=== PATIENT | female | born 1980 | race Caucasian/White ===

== ENCOUNTER 2016-12-04 10:45 | Emergency (ER) | payer SELFPAY ==
[~2016-12-04] VITALS: Ht 170.2 cm; Wt 95.8 kg
[~2016-12-04 10:45] MED LIST: ALBUTEROL SULF8.5 GM IH; AMOXICILLIN500 MG PO; CIPRO500 MG PO; DEBROX15 ML BOTH EARS; DILAUDID2 MG PO; FLAGYL500 MG PO; GLUCOPHAGE500 MG PO; IBUPROFEN200 M1 PO; LEVAQUIN750 MG PO; MEDROL DOSEPAK4 MG PO; MOTRIN600 MG PO; MOTRIN800 MG PO; NAPROSYN500 MG PO; NAPROXEN500 MG PO; NORCO 5/3251 TABLET PO; PEN-VEE K,VEET500 MG PO; PERCOCET 5/31 TABLET PO; PERIDEX1 ML MM; PREDNISONE20 MG PO; TAMSULOSIN HCL0.4 MG PO; TESSALON200 MG PO; TYLENOL REGULA325 MG PO; ULTRAM50 MG PO; VALIUM2 MG PO; ZOFRAN ODT8 MG PO
[2016-12-04 11:03] LABS: POINT-OF-CARE METER ID UU13113778
[2016-12-04 12:47] LABS: ADD MIUA? YES; BILIRUBIN NEGATIVE; BLOOD SMALL; COLOR YELLOW ((YELLOW)); GLUCOSE (STRIP) >=500; KETONES NEGATIVE; LEUKOCYTES NEGATIVE; NITRITE NEGATIVE; PROTEIN (STRIP) NEGATIVE; SPECIFIC GRAVITY 1.021 (1.000-1.030); UROBILINOGEN 0.2 MG/DL (0.2-1.0)
[2016-12-04 12:49] LABS: BACTERIA NONE SEEN /HPF; EPITHELIAL CELLS RARE /HPF; MUCUS TRACE /LPF; RED BLOOD CELLS 0-5 /HPF (0-5); WHITE BLOOD CELLS 0-5 /HPF (0-5)
[2016-12-04 12:53] LABS: HEMATOCRIT 45.6 % (36.0-46.0); MCH 24.9 PG (29.0-34.0); MCHC 31.6 G/DL (30.0-36.0); MCV 78.9 FL (83-99); MEAN PLAT.VOLUME 10.8 uM^3 (9.5-12.4); PLATELET COUNT 283 K/uL (156-360); RBC DIS.WIDTH-CV 14.3 % (11.8-14.6); RBC DIS.WIDTH-SD 40.7 % (39-53); RED BLOOD COUNT 5.78 M/uL (3.80-5.20); WHITE BLOOD COUNT 10.1 K/uL (4.1-10.2)
[2016-12-04 13:04] LABS: CHLORIDE 102 mEq/L (99-109); SODIUM 135 mEq/L (136-147)
[2016-12-04 13:05] LABS: GLUCOSE 299 mg/dL (70-99)
[2016-12-04 13:07] LABS: ANION GAP 10 MEQ/L (2-14)
[2016-12-04 13:09] LABS: GFR ESTIMATE (CALCULATED) > 59 mL/min/
[2016-12-04 13:10] LABS: UREA NITROGEN (BUN) 10 mg/dL (9-23)
[2016-12-04 13:18] LABS: QUANTITATIVE HCG < 4.0 MIU/ML
[2016-12-04 14:17] LABS: POINT-OF-CARE METER ID UU13113778
[2016-12-04 15:12] VITALS: BP 104/61
== END 2016-12-04 15:20 | disposition home or self-care (01) ==
LOC: EME 10:45
PROVIDERS: Nurse Practitioner Family
DX: E11.65 Type 2 diabetes mellitus with hyperglycemia (principal); R51 Headache; G62.9 Polyneuropathy, unspecified; R11.0 Nausea; R19.7 Diarrhea, unspecified; Z79.84 Long term (current) use of oral hypoglycemic drugs; Z98.51 Tubal ligation status; F17.200 Nicotine dependence, unspecified, uncomplicated
CPT/HCPCS: 80048; 81003; 82010; 82948; 84702; 85027; 99281; 99285; J1200; J1885; J2765; J7030

== ENCOUNTER 2017-03-10 23:58 | Emergency (ER) | payer SELFPAY ==
[~2017-03-10] VITALS: Ht 170.2 cm; Wt 94.8 kg
[2017-03-11 00:51] LABS: ADD MIUA? YES; BILIRUBIN NEGATIVE; BLOOD MODERATE; COLOR YELLOW ((YELLOW)); GLUCOSE (STRIP) >=500; KETONES 5; LEUKOCYTES NEGATIVE; NITRITE NEGATIVE; PROTEIN (STRIP) NEGATIVE; SPECIFIC GRAVITY 1.022 (1.000-1.030); UROBILINOGEN 0.2 MG/DL (0.2-1.0)
[2017-03-11 00:55] LABS: BACTERIA NONE SEEN /HPF; EPITHELIAL CELLS 1+ /HPF; MUCUS TRACE /LPF; UCUL ADDED? NO; WHITE BLOOD CELLS 0-5 /HPF (0-5)
[2017-03-11 01:17] LABS: BASOPHIL COUNT 0.1 K/uL (0-0.1); EOSINOPHIL (%) 1.9 % (0-5); EOSINOPHIL COUNT 0.2 K/uL (0-0.3); HEMATOCRIT 43.9 % (36.0-46.0); IMMATURE GRANULOCYTE (%) 0.5 % (0.0-0.7); IMMATURE GRANULOCYTE COUNT 0.1 K/uL; INSTRUMENT ABS NEUTROPHIL CT 7.5 K/uL; LYMPHOCYTE COUNT 2.2 K/uL (1.0-2.8); MCHC 32.6 G/DL (30.0-36.0); MCV 79.7 FL (83-99); MEAN PLAT.VOLUME 10.8 uM^3 (9.5-12.4); MONOCYTE (%) 5.1 % (3-12); MONOCYTE COUNT 0.5 K/uL (0-0.8); NEUTROPHIL COUNT 7.5 K/uL (1.8-6.4); PLATELET COUNT 276 K/uL (156-360); RBC DIS.WIDTH-CV 13.9 % (11.8-14.6); RBC DIS.WIDTH-SD 40.3 % (39-53); RED BLOOD COUNT 5.51 M/uL (3.80-5.20); WHITE BLOOD COUNT 10.5 K/uL (4.1-10.2)
[2017-03-11 01:29] LABS: CHLORIDE 104 mEq/L (99-109); POTASSIUM 3.3 mEq/L (3.7-5.4); SODIUM 137 mEq/L (136-147)
[2017-03-11 01:31] LABS: GLUCOSE 237 mg/dL (70-99)
[2017-03-11 01:33] LABS: ANION GAP 11 MEQ/L (2-14); TOTAL BILIRUBIN 0.2 mg/dL (0.0-1.0)
[2017-03-11 01:35] LABS: ALKALINE PHOSPHATASE 123 IU/L (3-129); GFR ESTIMATE (CALCULATED) > 59 mL/min/
[2017-03-11 01:36] LABS: UREA NITROGEN (BUN) 11 mg/dL (9-23)
[2017-03-11 01:45] LABS: QUANTITATIVE HCG < 4.0 MIU/ML
[2017-03-11] MEDS ORDERED: MOTRIN600 MG PO (03:14)
[2017-03-11] MEDS ORDERED: FLOMAX0.4 MG PO (03:14)
[2017-03-11] MEDS ORDERED: PERCOCET 5/31 TABLET PO (03:14)
[2017-03-11] MEDS ORDERED: ZOFRAN4 MG PO (03:14)
[2017-03-11 03:24] VITALS: BP 107/65
== END 2017-03-11 03:25 | disposition home or self-care (01) ==
LOC: EME 23:58
PROVIDERS: Emergency Medicine
DX: N13.2 Hydronephrosis with renal and ureteral calculous obstruction (principal); F17.200 Nicotine dependence, unspecified, uncomplicated; Z87.442 Personal history of urinary calculi; Z88.5 Allergy status to narcotic agent; Z88.8 Allergy status to other drugs, medicaments and biological substances; Z98.51 Tubal ligation status
CPT/HCPCS: 74176; 80053; 81003; 84702; 85025; 99281; 99285; J1885; J3010; J7030

== ENCOUNTER 2017-11-05 19:12 | Emergency (ER) | payer SELFPAY ==
[~2017-11-05] VITALS: Ht 180.3 cm; Wt 95.9 kg
[~2017-11-05 19:12] MED LIST changes: +FLOMAX0.4 MG PO; +ZOFRAN4 MG PO
[2017-11-05 21:29] LABS: APPEARANCE SL.HAZY ((CLEAR)); BILIRUBIN NEGATIVE; BLOOD SMALL; COLOR YELLOW ((YELLOW)); GLUCOSE (STRIP) >=500; KETONES NEGATIVE; LEUKOCYTES NEGATIVE; NITRITE NEGATIVE; PROTEIN (STRIP) NEGATIVE; SPECIFIC GRAVITY 1.018 (1.000-1.030); UROBILINOGEN 0.2 MG/DL (0.2-1.0)
[2017-11-05 21:34] LABS: BACTERIA NONE SEEN /HPF; EPITHELIAL CELLS 1+ /HPF; MUCUS 1+ /LPF; RED BLOOD CELLS 0-5 /HPF (0-5); UCUL ADDED? NO; WHITE BLOOD CELLS 0-5 /HPF (0-5)
[2017-11-05] MEDS ORDERED: LIDODERM 5% P1 PATCH TD (21:52)
[2017-11-05] MEDS ORDERED: BACLOFEN10 MG PO (21:52)
[2017-11-05] MEDS ORDERED: MOTRIN800 MG PO (21:52)
[2017-11-05] MEDS ORDERED: MEDROL DOSEPAK4 MG PO (22:12)
[2017-11-05 22:20] VITALS: BP 112/81
== END 2017-11-05 22:20 | disposition home or self-care (01) ==
LOC: EME 19:12
PROVIDERS: Nurse Practitioner Family
DX: M54.40 Lumbago with sciatica, unspecified side (principal); E11.9 Type 2 diabetes mellitus without complications; Z88.6 Allergy status to analgesic agent; Z88.5 Allergy status to narcotic agent; Z88.8 Allergy status to other drugs, medicaments and biological substances
CPT/HCPCS: 81003; 99281; 99284; J1885

== ENCOUNTER 2017-11-15 14:11 | Emergency (ER) | payer SELFPAY ==
[~2017-11-15] VITALS: Ht 170.2 cm; Wt 94.8 kg
[~2017-11-15 14:11] MED LIST changes: +BACLOFEN10 MG PO; +LIDODERM 5% P1 PATCH TD
[2017-11-15 14:55] LABS: HEMATOCRIT 47.8 % (36.0-46.0); HEMOGLOBIN 15.8 G/DL (11.9-15.5); MCHC 33.1 G/DL (30.0-36.0); MCV 78.7 FL (83-99); PLATELET COUNT 298 K/uL (156-360); RBC DIS.WIDTH-CV 13.9 % (11.8-14.6); RBC DIS.WIDTH-SD 39.6 % (39-53); RED BLOOD COUNT 6.07 M/uL (3.80-5.20); WHITE BLOOD COUNT 14.1 K/uL (4.1-10.2)
[2017-11-15 15:03] LABS: CHLORIDE 100 mEq/L (99-109); POTASSIUM 3.9 mEq/L (3.7-5.4); SODIUM 134 mEq/L (136-147)
[2017-11-15 15:05] LABS: GLUCOSE 375 mg/dL (70-99)
[2017-11-15 15:08] LABS: APPEARANCE CLEAR ((CLEAR)); BILIRUBIN NEGATIVE; BLOOD MODERATE; COLOR YELLOW ((YELLOW)); GLUCOSE (STRIP) >=500; KETONES NEGATIVE; LEUKOCYTES NEGATIVE; NITRITE NEGATIVE; PROTEIN (STRIP) NEGATIVE; SPECIFIC GRAVITY 1.031 (1.000-1.030); UROBILINOGEN 0.2 MG/DL (0.2-1.0)
[2017-11-15 15:09] LABS: CREATININE 0.8 mg/dL (0.6-1.3); GFR ESTIMATE (CALCULATED) > 59 mL/min/
[2017-11-15 15:10] LABS: UREA NITROGEN (BUN) 14 mg/dL (9-23)
[2017-11-15 15:18] LABS: BACTERIA NONE SEEN /HPF; EPITHELIAL CELLS RARE /HPF; MUCUS TRACE /LPF; RED BLOOD CELLS 20-30 /HPF (0-5); UCUL ADDED? NO; WHITE BLOOD CELLS 0-5 /HPF (0-5)
[2017-11-15] MEDS ORDERED: FLOMAX0.4 MG PO (17:29)
[2017-11-15] MEDS ORDERED: NORCO 5/3251 TABLET PO (17:29)
[2017-11-15 17:44] VITALS: BP 128/88
== END 2017-11-15 17:45 | disposition home or self-care (01) ==
LOC: EME 14:11
DX: N20.1 Calculus of ureter (principal); Z87.442 Personal history of urinary calculi; F17.200 Nicotine dependence, unspecified, uncomplicated; Z88.6 Allergy status to analgesic agent; Z88.5 Allergy status to narcotic agent; Z88.8 Allergy status to other drugs, medicaments and biological substances
CPT/HCPCS: 74018; 76770; 80048; 81003; 85027; 99281; 99284; J1885; J2405; J7030